=== PATIENT | male | born 1990 | race Two or more races ===

== ENCOUNTER 2022-08-20 16:27 | Inpatient (IN) | payer OTHER ==
[~2022-08-20] VITALS: Ht 167.6 cm; Wt 65.8 kg
--- NOTE | 2022-08-20 16:46 | NUR ---
SE RECIBE PTE ALERTA Y ORIENTADO X3. REFIERE DOLOR ABDOMINAL GEOVANNI DERECHO QUE IRRADIA HACIA LA PELVIS Y PIERNA DERECHA
--- NOTE | 2022-08-20 16:47 | NUR ---
SE RECIBE PTE ALERTA Y ORIENTADO X3. REFIERE DOLOR ABDOMINAL LADO DERECHO QUE IRRADIA HACIA LA PELVIS Y LA PIERNA DERECHA
--- NOTE | 2022-08-20 17:36 | NUR ---
PACIENTE EVALUADO POR DR JON POLLARDIEN ORDENA TRATAMIENTO MEDICO, SE LE ORIENTA A PACIENTE SOBRE EL MISMO Y VERBALIZA ENTENDER. SE LE COLECTAN MUESTRAS DE LABAROTORIO Y SE CANALIZA BAJO MEDIDAS ASEPTICAS. AREA DE VENOPUNCION PATENTE, JAYLON DE EDEMA Y ERITEMA. SE LE COLOCAN IV FLUIDS Y SE ADMINISTRAN MEDICAMENTOS MARIO ORDEN. PENDIENTE ESTUDIO DE CT EL CUAL FUE NOTIFICADO A PERSONAL CORRESPONDIENTE.
--- NOTE | 2022-08-20 20:41 | NUR ---
PTE REFIERE DOLOR. DA ORDEN PARA ADMINISTRAR MEDICAMENTO. SE ORIENTA A PTE Y FAMILIAR SOBRE MEDICAMENTO, VERBALIZAN ENTENDER Y ACEPTAR. SE ADMINISTRA MEDICAMENTO MARIO ORDEN MEDICA BAJO MEDIDAS ASEPTICAS.
== END 2022-08-23 13:00 | disposition home or self-care (01) | DRG 343 ==
LOC: ER 16:27 → SURH 22:02
PROVIDERS: ADMIT Internal Medicine; ATTEND Internal Medicine
PROC: 0DTJ4ZZ Resection of Appendix, Percutaneous Endoscopic Approach (ICD-10-PCS; principal; 2022-08-20)
PROC: BW21YZZ Computerized Tomography (CT Scan) of Abdomen and Pelvis using Other Contrast (ICD-10-PCS; 2022-08-20)
DX: K35.80 Unspecified acute appendicitis (principal); R10.31 Right lower quadrant pain